=== PATIENT | male | born 1955 | race Caucasian/White ===

== ENCOUNTER 2017-01-06 06:41 | Inpatient (IN) | payer OTHER ==
[~2017-01-06] VITALS: Ht 177.8 cm; Wt 65.8 kg
[2017-01-06] MEDS ORDERED: SODIUM CHLORIDE 0.9% 1,000 ML IV ONE ×2 (07:16→09:00)
[2017-01-06 08:01] LABS: BASOPHILS % 0.6 % (0.0-2.0); EOSINOPHILS % 0.7 % (0.0-5.0); HEMATOCRIT. 40.4 % (42.0-52.0); HEMOGLOBIN. 13.4 g/dL (14.0-18.0); LYMPHOCYTES % 10.7 % (20.0-50.0); MEAN CORPUSCULAR HEMOGLOBIN 30.8 pg (28.0-32.0); MEAN CORPUSCULAR VOLUME 92.8 fL (80.0-94.0); MEAN PLATELET VOLUME 7.7 fl (7.4-10.4); PLATELET 240 x1000/uL (130-400); RED BLOOD CELL COUNT 4.36 mill/uL (4.7-6.1)
[2017-01-06 08:19] LABS: INR 1.1; PROTHROMBIN TIME 11.7 sec (9.4-11.6)
[2017-01-06 08:20] LABS: CARBON DIOXIDE 29 mEq/L (21-32); CHLORIDE 95 mEq/L (98-107); TROPONIN I < 0.02 ng/mL (0.00-0.04)
[2017-01-06] MEDS ORDERED: MAGNESIUM 1 G PREMIX 100 ML IV ONE (09:00)
[2017-01-06] MEDS ORDERED: POTASSIUM CHLORIDE 20MEQ TABLET SR PO ONE (09:00)
[2017-01-06] MEDS ORDERED: POTASSIUM CHLORIDE 20MEQ TABLET SR PO SCH (15:00)
[2017-01-06 16:00] VITALS: BP 134/77
[2017-01-06] MEDS ORDERED: DOCUSATE SODIUM 100MG CAPSULE PO PRN (16:00)
[2017-01-06] MEDS ORDERED: ACETAMINOPHEN 325MG TABLET PO PRN (16:00)
[2017-01-06] MEDS ORDERED: ENOXAPARIN 40MG/0.4ML SYR SUBCUT SCH (17:00)
[2017-01-06 20:00] VITALS: BP 101/73
[2017-01-06 21:54] VITALS: BP 101/73
== END 2017-01-07 00:58 | disposition short-term general hospital (02) | DRG 312 ==
LOC: ER 06:41 → 7WST 09:20 → EDBEDREQ 09:25 → CANRESERV 12:32 → ENRESERV 12:32
PROVIDERS: ADMIT Internal Medicine Pulmonary Disease; ATTEND Internal Medicine Pulmonary Disease
DX: R55 Syncope and collapse (principal); L97.829 Non-pressure chronic ulcer of other part of left lower leg with unspecified severity; E87.6 Hypokalemia; E86.0 Dehydration; Z96.641 Presence of right artificial hip joint; F10.10 Alcohol abuse, uncomplicated; H54.7 Unspecified visual loss; R22.32 Localized swelling, mass and lump, left upper limb
CPT/HCPCS: 36415; 70450; 71010; 80053; 83605; 83690; 84484; 85025; 85610; 87040; 96361; 96365; 96366; 99285; J1650; J3475; J7030